=== PATIENT | female | born 1965 | race Caucasian/White ===

== ENCOUNTER 2018-07-07 20:26 | Emergency (ER) | payer OTHER ==
--- NOTE | 2018-07-07 21:10 | ED ---
General Adult HPI - General Chief complaint: Psychiatric Symptoms Stated complaint: Mental health Time Seen by Provider: 07/07/18 20:57 Source: patient, RN notes reviewed Mode of arrival: ambulatory - History of Present Illness Initial comments: 53-year-old female with a past medical history of depression presents to the emergency department for a chief complaint of symptoms of depression. Patient states she has had depression for many years and symptoms worsened about one year ago. Patient states that since then she has only wanted to lay on the couch and has not had much energy. She states that she stopped taking her Effexor 6 months ago because it was not working. She states she does see a psychiatric nurse practitioner but has not followed up with them since stopping Effexor. Patient denies any suicidal thoughts or any thoughts of harming herself in any way. No homicidal thoughts. Patient states she is having trouble finding a psychiatrist.Patient has no other complaints at this time including shortness of breath, chest pain, abdominal pain, nausea or vomiting, headache, or visual changes. - Related Data Home Medications Medication Instructions Recorded Confirmed Haloperidol [Haldol] 1 mg PO DAILY 07/07/18 07/07/18 Levothyroxine Sodium [Synthroid] 125 mcg PO DAILY 07/07/18 07/07/18 Allergies Allergy/AdvReac Type Severity Reaction Status Date / Time Sulfa (Sulfonamide Allergy Rash/Hives Verified 07/07/18 21:13 Antibiotics) Review of Systems ROS Statement: Those systems with pertinent positive or pertinent negative responses have been documented in the HPI. ROS Other: All systems not noted in ROS Statement are negative. Past Medical History Past Medical History: No Reported History, Thyroid Disorder History of Any Multi-Drug Resistant Organisms: None Reported Past Surgical History: No Surgical Hx Reported Past Psychological History: Depression Smoking Status: Current every day smoker Past Alcohol Use History: Daily Past Drug Use History: None Reported General Exam General appearance: alert, in no apparent distress Head exam: Present: atraumatic, normocephalic, normal inspection Eye exam: Present: normal appearance. Absent: PERRL, EOMI, scleral icterus, conjunctival injection ENT exam: Present: normal exam, normal oropharynx, mucous membranes moist, TM's normal bilaterally, normal external ear exam Neck exam: Present: normal inspection, full ROM. Absent: tenderness, meningismus, lymphadenopathy Respiratory exam: Present: normal lung sounds bilaterally. Absent: respiratory distress, wheezes, rales, rhonchi, stridor Cardiovascular Exam: Present: regular rate, normal rhythm, normal heart sounds. Absent: bradycardia, tachycardia, irregular rhythm Neurological exam: Present: alert, oriented X3, CN II-XII intact Psychiatric exam: Present: normal affect, normal mood. Absent: homicidal ideation, suicidal ideation Course Vital Signs 07/07/18 20:40 Temperature 97.4 F L Pulse Rate 94 Respiratory 20 Rate Blood Pressure 115/65 O2 Sat by Pulse 99 Oximetry Medical Decision Making - Medical Decision Making 53-year-old female presents to the emergency department for a chief complaint of chronic depression. Patient states she has had depression for several years. States that this worsened about one year ago. Patient stopped taking Effexor 6 months ago. Has not followed up with her psychiatrist as he retired and BNP she is working with has not been able to help her. Denies any suicidal thoughts or thoughts of harming herself whatsoever. Denies any homicidal thoughts. Patient stating she is just looking for resources in the community and does not want inpatient admission. EPS was consulted and gave multiple referrals for patient. On discharge patient again refusing any suicidal thoughts whatsoever. States she will follow up with these referrals. She'll return here if she has any worsening symptoms or thoughts of suicide. - Lab Data Lab Results 07/07/18 Range/Units 21:30 Urine Opiates Screen Not Detected (NotDetected) Ur Oxycodone Screen Not Detected (NotDetected) Urine Methadone Screen Not Detected (NotDetected) Ur Propoxyphene Screen Not Detected (NotDetected) Ur Barbiturates Screen Not Detected (NotDetected) U Tricyclic Antidepress Not Detected (NotDetected) Ur Phencyclidine Scrn Not Detected (NotDetected) Ur Amphetamines Screen Not Detected (NotDetected) U Methamphetamines Scrn Not Detected (NotDetected) U Benzodiazepines Scrn Not Detected (NotDetected) Urine Cocaine Screen Not Detected (NotDetected) U Marijuana (THC) Screen Not Detected (NotDetected) Disposition Clinical Impression: Depression Disposition: HOME SELF-CARE Condition: Good Instructions (If sedation given, give patient instructions): Depression (ED) Additional Instructions: Please follow up with referral list given for psychiatrist. Follow-up with [facility] as well. If you have any worsening symptoms or any thoughts of suicide return here immediately to the emergency department. Is patient prescribed a controlled substance at d/c from ED?: No Referrals: Roque Reyes MD [REFERRING] - 1-2 days Time of Disposition: 22:52
[2018-07-07 21:47] LABS: Amphetamine Screen,Urine Not Detected (NotDetected); Barbiturate Screen,Urine Not Detected (NotDetected); Benzodiazepines Screen,Urine Not Detected (NotDetected); Cocaine Screen,Urine Not Detected (NotDetected); Methadone Screen, Urine Not Detected (NotDetected); Opiate Screen,Urine Not Detected (NotDetected); Oxycodone Screen, Urine Not Detected (NotDetected); Phencyclidine Screen,Urine Not Detected (NotDetected); Tricyclic Antidepressant,Urine Not Detected (NotDetected); Urn Cannabinoid Scrn Not Detected (NotDetected)
[2018-07-07 23:14] VITALS: BP 143/88; PULSE 78; RESP 18; TEMP 97.9
== END 2018-07-07 23:14 | disposition home or self-care (01) ==
LOC: EC 20:26
DX: F32.9 Major depressive disorder, single episode, unspecified (principal); E07.9 Disorder of thyroid, unspecified; F17.200 Nicotine dependence, unspecified, uncomplicated; Z79.890 Hormone replacement therapy; Z79.899 Other long term (current) drug therapy; Z88.2 Allergy status to sulfonamides
CPT/HCPCS: 80306; 99284